=== PATIENT | female | born 1950 | race Caucasian/White ===

== ENCOUNTER 2021-09-26 14:14 | Outpatient (CLI) | payer MEDICARE, BC | END 2021-09-26 14:15 | disposition home or self-care (01) | LOC: CSHMAMMO 14:14 | PROVIDERS: ATTEND Family Medicine | DX: Z13.820 Encounter for screening for osteoporosis (principal); Z78.0 Asymptomatic menopausal state; M85.851 Other specified disorders of bone density and structure, right thigh; M85.852 Other specified disorders of bone density and structure, left thigh | CPT/HCPCS: 77080 ==